=== PATIENT | female | born 1960 | race Caucasian/White ===

== ENCOUNTER → 2019-03-23 | Outpatient (CLI) | payer BC ==
[~2019-03-23] MED LIST: BENADRYL25 M1; CBD OIL; MIDAZOLAM HCL 2 MG/2 ML VIAL ONE
--- NOTE | 2019-03-23 16:59 | Diagnostic Imaging Report ---
PROCEDURE: Ultrasound-guided right thyroid biopsy Procedural Personnel Attending physician(s): Shameka Evans MD Fellow physician(s): None Resident physician(s): None Advanced practice provider(s): None Pre-procedure diagnosis: Thyroid nodule Post-procedure diagnosis: Same Indication: Histopathologic diagnosis Previous biopsy of same target (QCDR): No Additional clinical history: None Complications: No immediate complications. IMPRESSION: Ultrasound-guided core and FNA biopsy of right thyroid nodule. Plan: Specimen(s) sent for evaluation. PROCEDURE SUMMARY: - Percutaneous US-guided right thyroid biopsy - Additional procedure(s): None PROCEDURE DETAILS: Pre-procedure Reference imaging for biopsy target: Thyroid ultrasound (outside imaging) Consent: Informed consent for the procedure including risks, benefits and alternatives was obtained and time-out was performed prior to the procedure. Preparation: The site was prepared and draped using maximal sterile barrier technique including cutaneous antisepsis. Anesthesia/sedation Level of anesthesia/sedation: Minimal sedation (anxiolysis) Anesthesia/sedation administered by: Independent trained observer under attending supervision with continuous monitoring of the patient?s level of consciousness and physiologic status Total intra-service sedation time (minutes): 45 Imaging prior to biopsy The patient was positioned supine. Initial ultrasound was performed. Biopsy target: - Location: Right thyroid nodule Other findings: None Biopsy Local anesthesia was administered. Under US guidance, the biopsy needle was advanced to the target and biopsy was performed. Coaxial needle: 17 gauge Core needle biopsy device: 18 gauge [employer] Core needle size: 18g Number of core specimens: 2 Fine needle aspiration device: 22g Chiba Fine needle size: Not applicable Number of FNA specimens: 3 On-site biopsy touch preparation: Yes Additional sampling recommendations: After review of the fine needle sample, the pathologist requested core biopsies for further and complete evaluation. Preliminary assessment of sample adequacy: Adequate Needle removal The biopsy needle was removed and a sterile dressing was applied. Tract embolization: None Imaging following biopsy Immediate post-biopsy ultrasound was performed. Post-biopsy imaging findings: Small hematoma, stable after pressure held. Additional Details Additional description of procedure: None Equipment details: None Specimens removed: Biopsy samples as detailed above Estimated blood loss (mL): Less than 10 Standardized report: [id number] Attestation Signer name: Shameka Evans MD I attest that I was present for the entire procedure. I reviewed the stored images and agree with the report as written. Signed by: Shameka Evans MD on 03/23/2019 4:55 PM
== END ==
LOC: US 11:14
PROVIDERS: ATTEND Otolaryngology
DX: R22.1 Localized swelling, mass and lump, neck (principal)
CPT/HCPCS: 10005; 88112; 88172; 88305; J2250; 88173

== ENCOUNTER 2019-05-07 06:41 | Observation (INO) | payer BC ==
[2019-05-04 09:53] LABS: BASOPHILS # (AUTO) 0.1 (0.0-0.1); BASOPHILS % 1.2 % (0.0-1.0); EOSINOPHILS # (AUTO) 0.1 (0.0-0.4); EOSINOPHILS % 1.1 % (0.0-6.0); HEMATOCRIT 44.7 % (34.2-44.1); HEMOGLOBIN 14.8 g/dL (12.0-16.0); LYMPHOCYTES # (AUTO) 2.2 (1.0-3.2); MEAN CORPUSCULAR HEMOGLOBIN 30.3 pg (28-32); MEAN CORPUSCULAR HGB CONC 33.1 g/dL (31-35); MEAN CORPUSCULAR VOLUME 91.6 fL (81-99); MONOCYTES # (AUTO) 0.6 (0.2-0.8); NEUTROPHILS # (AUTO) 6.2 (2.1-6.9); NEUTROPHILS % 67.5 % (38.7-80.0); PLATELET COUNT 278 x10e3/uL (140-360); RED BLOOD COUNT 4.88 x10e6/uL (3.6-5.1); RED CELL DISTRIBUTION WIDTH 12.4 % (11.7-14.4)
[~2019-05-07] VITALS: Ht 162.6 cm; Wt 66.0 kg
[~2019-05-07 06:41] MED LIST changes: -MIDAZOLAM HCL 2 MG/2 ML VIAL ONE
--- OUTSIDE RECORDS SUMMARY | 2019-05-07 06:57 | XMS REPORT ---
Author Author [facility] Address Unknown Phone Unavailable Care Team Providers Care Family Manager Name Role Phone ROLANDA BETH Unavailable Unavailable Problems This patient has no known problems. Allergies, Adverse Reactions, Alerts This patient has no known allergies or adverse reactions. Medications This patient has no known medications. Results Test Description Test Time Test Comments Text Results Atomic Results Result Comments FNA US GUIDED 1ST LESION 2019-03-23 16:53:00 [place] [address] Patient Name: RYANN BOWLING MR #: [id number] : 1960 Age/Sex: 59/F Req #: [id number] Adm Physician: Ordered by: KIRIT MCKENNA, ROLANDA MCKENNA Report #: [id number] Location: US Room/Bed: Procedure: IR/FNA US GUIDED 1ST LESION Exam Date: 03/23/19 Exam Time: 1226 REPORT STATUS: Signed PROCEDURE: Ultrasound-guided right thyroid biopsy Procedural Personnel Attending physician(s): Rajendra Al MD Fellow physician(s): None Resident physician(s): None Advanced practice provider(s): None Pre-procedure diagnosis: Thyroid nodule Post-procedure diagnosis: Same Indication: Histopathologic diagnosis Previous biopsy of same target (QCDR): No Additional clinical history: None Complications: No immediate complications. IMPRESSION: Ultrasound-guided core and FNA biopsy of right thyroid nodule. Plan: Specimen(s) sent for evaluation. PROCEDURE SUMMARY: - Percutaneous US-guided right thyroid biopsy - Additional procedure(s): None PROCEDURE DETAILS: Pre-procedure Reference imaging for biopsy target: Thyroid ultrasound (outside imaging) Consent: Informed consent for the procedure including risks, benefits and alternatives was obtained and time-out was performed prior to the procedure. Preparation: The site was prepared and draped using maximal sterile barrier technique including cutaneous antisepsis. Anesthesia/sedation Level of anesthesia/sedation: Minimal sedation (anxiolysis) Anesthesia/sedation administered by: Independent trained observer under attending supervision with continuous monitoring of the patient?s level of consciousness and physiologic status Total intra-service sedation time (minutes): 45 Imaging prior to biopsy The patient was positioned supine. Initial ultrasound was performed. Biopsy target: - Location: Right thyroid nodule Other findings: None B iopsy Local anesthesia was administered. Under US guidance, the biopsy needle was advanced to the target and biopsy was performed. Coaxial needle: 17 gauge Core needle biopsy device: 18 gauge [email or web address] Core needle size: 18g Number of core specimens: 2 Fine needle aspiration device: 22g Chiba Fine needle size: Not applicable Number of FNA specimens: 3 On- site biopsy touch preparation: Yes Additional sampling recommendations: After review of the fine needle sample, the pathologist requested core biopsies for further and complete evaluation. Preliminary assessment of sample adequacy: Adequate Needle removal The biopsy needle was removed and a sterile dressing was applied. Tract embolization: None Imaging following biopsy Immediate post-biopsy ultrasound was performed. Post-biopsy imaging findings: Small hematoma, stable after pressure held. Additional Details Additional description of procedure: None Equipment details: None Specimens removed: Biopsy samples as detailed above Estimated blood loss (mL): Less than 10 Standardized report: [id number] Attestation Signer name: Rajendra Al MD I attest that I was present for the entire procedure. I reviewed the stored images and agree with the report as written. Signed by: Rajendra Al MD on 03/23/2019 4:55 PM Dictated By: RAJENDRA AL MD [id number] Transcribed By: ALAINA on 03/23/19 1658 COPY TO: ROLANDA BETH
[2019-05-07] MEDS ORDERED: LIDOCAINE 1% W/EPINEPHRINE 20 ML VIAL ONE (08:06)
[2019-05-07] MEDS ORDERED: ACETAMINOPHEN 1000 MG/100 ML 100 ML IV ONE (08:18)
[2019-05-07] MEDS ORDERED: LIDOCAINE HCL (LTA) 4 ML SOLN ONE (08:19)
[2019-05-07] MEDS ORDERED: FENTANYL CITRATE/PF 100MCG/2 ML INJ ONE ×2 (11:23→15:03)
[2019-05-07] MEDS ORDERED: HYDROMORPHONE 2MG/ML 2 MG/ML ML ONE (12:02)
[2019-05-07] MEDS ORDERED: DEXAMETHASONE SOD PHOS INJ 4 MG/ML VIAL ONE (14:02)
[2019-05-07] MEDS ORDERED: SEVOFLURANE INHAL SOLN 250 ML PEN BTL ONE (14:02)
[2019-05-07] MEDS ORDERED: LIDOCAINE HCL 2% LOCAL INJ 5 ML SDV VIAL INJ ONE (14:02)
[2019-05-07] MEDS ORDERED: ONDANSETRON HCL INJ 2MG/ML 2ML 2 MG/ML VIAL ONE (14:02)
[2019-05-07] MEDS ORDERED: LIDOCAINE HCL 2% JELLY 5 ML TUBE ONE (14:02)
[2019-05-07] MEDS ORDERED: PROPOFOL IV EMULSION 10 MG/ML 20 ML VIAL ONE (14:02)
[2019-05-07] MEDS ORDERED: MIDAZOLAM HCL 2 MG/2 ML VIAL ONE (15:03)
[2019-05-07 16:39] VITALS: BP 113/61
[2019-05-07 16:53] VITALS: BP 113/61
[2019-05-07 17:04] VITALS: BP 140/77
[2019-05-07] MEDS ORDERED: TRAMADOL HCL 50 MG TAB PO PRN (17:45)
[2019-05-07] MEDS: D5.45%NS/KCL 20MEQ 1,000 ML IV SCH (17:45)
[2019-05-07] MEDS ORDERED: SODIUM CHLORIDE FLUSH 10 ML SYR INJ PRN (17:45)
--- NOTE | 2019-05-07 18:20 | Operative Report ---
DATE OF PROCEDURE: 05/07/2019 SURGEON: Foreign Medina MD PERSONNEL SPECIALIST: Araseli Garrison MD PREOPERATIVE DIAGNOSIS: Right thyroid nodule. POSTOPERATIVE DIAGNOSIS: Right thyroid nodule. PROCEDURE: Right thyroid lobectomy with nerve integrity monitor (NIM). SIGNIFICANT FINDINGS: Frozen section analysis suggests benign findings. ANESTHESIA: General endotracheal tube anesthesia with nerve integrity monitor (NIM) endotracheal tube. SPECIMENS REMOVED: Right thyroid lobe. ESTIMATED BLOOD LOSS: 10 mL. COMPLICATIONS: None. INDICATIONS: The patient is a 59-year-old white female with a 4-month history of a palpable right lower anterior neck mass. Exam revealed right lower anterior neck mass. CT neck performed on March 12, 2019 revealed a 2.0 x 1.5 x 3.0 cm centrally necrotic mass arising from the right thyroid lobe. The left thyroid lobe was normal. No lymphadenopathy was seen. Ultrasound-guided FNA biopsy and core biopsy performed on March 23, 2019 were both nondiagnostic. On examination, she has right lower anterior neck mass. She is scheduled for right thyroid lobectomy (possible total thyroidectomy) for the treatment of right thyroid lobe nodule with central necrosis, which was nondiagnostic on FNA and core biopsies. The risks and complications of the procedure were thoroughly discussed with the patient include infection, bleeding, scarring, failure to improve, need for additional operations, possibility of malignancy and need for further surgery and radioactive iodine treatment, poor external cosmetic appearance of the incision, damage to recurrent laryngeal nerve(s) causing vocal cord paralysis and possible permanent need for tracheostomy tube, damage to the parathyroid glands resulting in permanent hypocalcemia and the complications resulting from hypocalcemia, damage to the upper airway and upper aerodigestive tract(s), damage to the vagus nerve, damage to carotid arteries, damage to surrounding nerves, blood vessels, and muscles, need for blood transfusion(s). She fully understands and gives consent to proceed with surgery. PROCEDURE IN DETAIL: The patient was taken to the operating room and placed supine on the operating table where general anesthesia was achieved through a 7.0 nerve integrity monitor (NIM) endotracheal tube. The electrodes for the nerve integrity monitoring system were then applied. Injection with 7 mL of 1% lidocaine with 1:100,000 epinephrine was injected along a natural skin crease 2 fingerbreadths superior to the clavicles. The neck was then prepped and draped in the usual sterile fashion. An approximately 6 cm incision was then made along the natural skin crease 2 fingerbreadths superior to the clavicles. The incision was made past the platysmal layer. The skin flaps were then elevated superiorly, inferiorly, and laterally. The Tobias self-retaining retractor was then inserted without difficulty. The midline raphe was then divided vertically until the anterior surface of the thyroid isthmus was encountered. Palpation confirmed the mass to be on the right side. The overlying strap muscles were elevated off the right thyroid lobe. Dissection inferior to the right thyroid lobe then identified the inferior parathyroid gland as well as the recurrent laryngeal nerve. The recurrent laryngeal nerve was traced atraumatically superiorly until it entered the larynx inferior to the cricothyroid muscle. The superior pole of the right thyroid lobe was then skeletonized and divided with the Harmonic Scalpel. Further dissection then revealed what appeared to be the right superior parathyroid gland to go along with the right inferior parathyroid gland that was visualized during dissection of the recurrent laryngeal nerve. The right thyroid lobe was then released from its attachments and was then divided at the isthmus including the palpable right thyroid nodule. This was sent for frozen section analysis, which revealed findings consistent with benign findings. The right inferior parathyroid gland and the possible right superior parathyroid gland were seen. The recurrent laryngeal nerve was seen to be intact and function was intact by stimulating it with the probe attached to the NIM monitor. Following this, irrigation was performed. Hemostasis was performed judiciously with bipolar cautery, taking care to avoid any trauma to the recurrent laryngeal nerve or the parathyroid glands. Following this, a KRISTIN drain was then inserted through a separate stab incision. The midline raphe was then reapproximated with interrupted 4-0 Monocryl suture. The incision was then repaired with interrupted 4-0 Monocryl suture through the platysmal layer, followed by interrupted 4-0 Monocryl in a subcuticular fashion followed by Dermabond. The patient was awakened in the operating room, extubated, and taken to the recovery room in good condition. MD CANDELARIA Silver/SHANNON /[id number] JUNE
--- NOTE | 2019-05-07 19:05 | NUR ---
received report from day nurse. patient is resting comfortably in bed. bed is in lowest position and call light is within reach. will continue to monitor patient.
[2019-05-07] MEDS: TRAMADOL HCL 50 MG TAB PO PRN (19:41)
[2019-05-07 20:00] VITALS: BP 107/68
[2019-05-07 20:49] VITALS: BP 107/68
[2019-05-08] VITALS: BP 119/58
[2019-05-08] MEDS: TRAMADOL HCL 50 MG TAB PO PRN ×3 (00:29→09:37)
[2019-05-08] MEDS: D5.45%NS/KCL 20MEQ 1,000 ML IV SCH (02:05)
[2019-05-08 04:00] VITALS: BP 112/58
--- NOTE | 2019-05-08 06:43 | NUR ---
report given to day nurse. patient is resting comfortably in bed. bed is in lowest position and call light is within reach.
--- NOTE | 2019-05-08 07:20 | NUR ---
Rcvd patient in report this am. Patient is asleep in bed at this time. No s/s of distress noted
[2019-05-08 08:11] VITALS: BP 125/64
--- NOTE | 2019-05-08 09:00 | NUR ---
Patient is AAox3. Post op thyroidectomy. KRISTIN drain noted. Medial neck incision noted and clean and dry. Patient c/o some pain at this time. PRN pain meds to be given when due. Lung tabor clear to auscultation. Bowel sounds present x4. No edema noted.
--- NOTE | 2019-05-08 09:05 | NUR ---
Dr. Medina at bedside and removed KRISTIN drain. Patient tolerated well.
[2019-05-08 09:16] VITALS: BP 125/64
--- NOTE | 2019-05-08 09:30 | NUR ---
removed IV from right wrist. Pressure dressing applied.
--- NOTE | 2019-05-08 09:40 | NUR ---
Patient discharged from facility to home. Patient assisted out via staff. reviewed all discharge paperwork, follow up appts and no RX's needed.
== END 2019-05-08 09:40 | disposition home or self-care (01) ==
LOC: OR 06:41 → PACU V 11:24 → MED/SURG 14:54
PROVIDERS: ADMIT Otolaryngology; ATTEND Otolaryngology
DX: E06.3 Autoimmune thyroiditis (principal); E04.1 Nontoxic single thyroid nodule; Z88.5 Allergy status to narcotic agent; Z88.0 Allergy status to penicillin; Z72.0 Tobacco use; R05 Cough; F41.9 Anxiety disorder, unspecified; Z01.810 Encounter for preprocedural cardiovascular examination; Z01.812 Encounter for preprocedural laboratory examination
CPT/HCPCS: 36415; 60220; 85025; 88307; 88331; 88333; 88334; 93005; G0378 ×2; J0131; J1100; J1170; J2001 ×2; J2250; J2405; J2704; J3010